=== PATIENT | female | born 1990 | race Two or more races ===

== ENCOUNTER 2017-08-13 14:20 | Observation (INO) | payer MEDICAID | END 2017-08-13 15:15 | disposition home or self-care (01) | DRG 566 | LOC: LDRP 14:20 | PROVIDERS: ADMIT Specialist; ATTEND Specialist | DX: O26.893 Other specified pregnancy related conditions, third trimester (principal); R55 Syncope and collapse; Z3A.34 34 weeks gestation of pregnancy | CPT/HCPCS: 59025; 81002; 82948; 82962; G0378 ==

== ENCOUNTER 2017-09-18 09:50 | Observation (INO) | payer MEDICAID ==
[2017-09-21] MEDS ORDERED: PREN-96 PO (07:15)
== END 2017-09-18 11:25 | disposition home or self-care (01) | DRG 566 ==
LOC: LDRP 09:50
PROVIDERS: ADMIT Obstetrics & Gynecology; ATTEND Obstetrics & Gynecology
DX: O48.0 Post-term pregnancy (principal); Z3A.40 40 weeks gestation of pregnancy
CPT/HCPCS: 59025; 76818; 81002; G0378

== ENCOUNTER → 2024-02-15 | Outpatient (CLI) | payer MEDICAID ==
[~2024-02-15] MED LIST: PREN-96 PO
[2024-02-15 10:29] LABS: Basophils # (auto) 0 10 ^3/uL (0-0.2); Basophils % (auto) 0.5 % (0.0-2.0); Eosinophils # (auto) 0 10 ^3/uL (0-0.8); Hematocrit 35.8 % (36.0-46.0); Hemoglobin 12.1 g/dL (12.2-16.2); Lymphocytes # (auto) 1.9 10 ^3/uL (0.4-5.4); Mean Corpuscular Hemoglobin 32.3 pg (28.0-32.0); Mean Corpuscular Hgb Conc. 33.7 g/dL (32.0-36.0); Mean Corpuscular Volume 95.9 fL (80.0-100.0); Monocytes # (auto) 0.3 10 ^3/uL (0-1.3); Monocytes % (auto) 8.1 % (0.0-12.0); Neutrophils % (auto) 46.4 % (37.0-80.0); Nucleated Red Blood Cells % 0.1 %; Red Blood Cells 3.73 10^6/uL (4.0-5.20); White Blood Cell 4.3 10^3/uL (4.4-10.8)
[2024-02-15 16:22] LABS: Amphetamine Screen, Urine Neg (NEGATIVE); Barbiturate Scree,Urine Neg (NEGATIVE); Benzodiazephine Screen, Urine Neg (NEGATIVE); Cannabinoid Screen, Urine Neg (NEGATIVE); Cocaine Screen, Urine Neg (NEGATIVE); Opiate Scree,Urine Neg (NEGATIVE); Phencyclidine Screen, Urine Neg (NEGATIVE)
[2024-02-16 07:07] LABS: RPR Non Reactive (Non Reactive)
[2024-02-17 02:06] LABS: Chlamydia Trachomatis, NAA Negative (Negative); Neisseria gonorrhoeae, NAA Negative (Negative)
[2024-02-17 12:06] LABS: QuantiFERON-TB Gold Plus Negative (Negative)
== END | disposition home or self-care (01) ==
LOC: LAB 10:01
PROVIDERS: ATTEND Obstetrics & Gynecology
DX: Z11.3 Encounter for screening for infections with a predominantly sexual mode of transmission (principal)
CPT/HCPCS: 36415; 80307; 83036; 84144; 84702; 85025; 86592; 86703; 86762; 86850; 86900; 86901; 87086; 87340

== ENCOUNTER 2024-09-10 12:38 | Inpatient (IN) | payer MEDICAID ==
[~2024-09-10] VITALS: Ht 165.1 cm; Wt 82.1 kg
[2024-09-10] MEDS ORDERED: LACT. RINGERS/OXYTOCIN 20UNITS 1,000 ML IV SCH (13:30)
[2024-09-10] MEDS ORDERED: NALOXONE HCL 0.4 MG/ML VIAL IV ONE (13:30)
[2024-09-10] MEDS ORDERED: ePHEDrine SULFATE 50 MG/ML AMP IV ONE (13:30)
[2024-09-10] MEDS ORDERED: BUTORPHANOL TARTRATE 2 MG/1 ML VIAL IV PRN ×2 (13:30)
[2024-09-10] MEDS ORDERED: TERBUTALINE SULFATE 1 MG/ML 1ML VIAL SC PRN (13:30)
[2024-09-10] MEDS ORDERED: LACT. RINGERS/OXYTOCIN 20UNITS 500 ML IV ONE ×2 (13:30→14:00)
[2024-09-10] MEDS: PENICILLIN G POT 5MIL/D5 50ML 50 ML IV ONE ×2 (14:20→15:08)
[2024-09-10 14:28] LABS: Basophils # (auto) 0 10 ^3/uL (0-0.2); Basophils % (auto) 0.4 % (0.0-2.0); Eosinophils # (auto) 0.1 10 ^3/uL (0-0.8); Eosinophils % (auto) 1.4 % (0.0-7.0); Hemoglobin 12.5 g/dL (12.2-16.2); Lymphocytes # (auto) 1.8 10 ^3/uL (0.4-5.4); Lymphocytes % (auto) 32.5 % (10.0-50.0); Mean Corpuscular Hemoglobin 33.8 pg (28.0-32.0); Mean Corpuscular Hgb Conc. 33.7 g/dL (32.0-36.0); Mean Corpuscular Volume 100.2 fL (80.0-100.0); Monocytes # (auto) 0.4 10 ^3/uL (0-1.3); Neutrophils # (auto) 3.2 10 ^3/uL (1.6-8.6); Neutrophils % (auto) 57.7 % (37.0-80.0); Platelet Count (auto) 135 10^3/uL (140-450); Red Blood Cells 3.69 10^6/uL (4.0-5.20); Red Cell Distribution Width 13.3 % (11.8-14.3); White Blood Cell 5.6 10^3/uL (4.4-10.8)
[2024-09-10 14:45] LABS: INR 0.96 (0.9-1.15); Partial Thromboplastin Time 27.3 SEC (24.5-34.5); Prothrombin Time 10.2 sec (9.3-11.8)
[2024-09-10 14:49] LABS: Alanine Aminotransferase 13 U/L (7-40); Albumin 3.7 g/dL (3.2-4.8); Alkaline Phosphatase 241 U/L (46-116); Anion Gap 12 (5-15); Aspartate Aminotransferase 17 U/L (13-40); BUN/Creatinine Ratio 13.3 (10.0-20.0); Bilirubin, Total 0.5 mg/dL (0.2-1.0); Blood Urea Nitrogen 8 mg/dL (9-23); Calcium 9.7 mg/dL (8.7-10.4); Carbon Dioxide 17 mmol/L (20-31); Chloride 110 mmol/L (98-107); Glucose 79 mg/dL (74-106); Potassium 3.6 mmol/L (3.5-5.1); Sodium 139 mmol/L (136-145); Total Protein 6.2 g/dL (5.7-8.2)
[2024-09-10] MEDS: PHISODERM TOP SOLN 240ML BTL TOP PRN (15:07)
[2024-09-10] MEDS: DERMOPLAST 60ML BOTTLE TOP PRN (15:07)
[2024-09-10] MEDS: WITCH HAZEL-GLYCERIN PAD TOP PRN (15:07)
[2024-09-10 15:08] LABS: Urine Bacteria None Seen /hpf (None Seen)
[2024-09-10] MEDS: PHISODERM TOP SOLN 240ML BTL TOP ONE (15:08)
[2024-09-10] MEDS: DERMOPLAST 60ML BOTTLE TOP ONE (15:08)
[2024-09-10] MEDS: WITCH HAZEL-GLYCERIN PAD TOP ONE (15:08)
--- NOTE | 2024-09-10 15:13 | DVHHP2 ---
OB CC & HPI Date Date of Admission: Sep 10, 2024 Patient Identification: : 4 Para: 3 EDC: Sep 11, 2024 EGA: 39 6/7 Chief Complaints: Reason for admission: active labor Other reason for admission: Of labor precipitous delivery History of Present Complaints Patient had her early care March 06, 2024 13 weeks Past Medical History Cardiac: No pertinent Hx Pulmonary: No pertinent Hx Central Nervous System: No pertinent Hx GI: No pertinent Hx Hemotology/Oncology: No pertinent Hx Hepatobiliary: No pertinent Hx Psychiatric: No pertinent Hx Musculoskeletal: No pertinent Hx Rheumotologic: No pertinent Hx Infectious Disease: No peritnent Hx ENT: No pertinent Hx Renal/: No pertinent Hx Endocrine: No pertinent Hx Dermatology: No pertinent Hx Past Surgical History: No pertinent Hx OB History OB History Care: Good Care Ultrasounds: Normal mid trimester US Obstetrical Complications: None Medical Complications: None Allergies: Coded Allergies: NO KNOWN ALLERGIES (Unverified , 07/27/12) Home Meds Reported Medications Vit W/ Ferrous Fumara ( One Daily) Daily Tab, 1 TAB PO DAILY, #90 TAB 3 Refills 09/21/17 Current Medications Current Medications Medications (Trade) Dose Ordered Sig/Marques Route PRN Reason Start Time Stop Time Status Last Admin Lactated Ringer's 1,000 ml @ 125 mls/hr Q8H IV 09/10/24 13:30 Penicillin G Potassium 5401920 units/Dextrose 50 ml @ 100 mls/hr Q4H IV 09/10/24 17:30 Witch Aracely (Tucks) 1 pad PRN PRN TOP PERINEAL AREA DISCOMFORT 09/10/24 13:30 Sodium Lauryl Sulfate (Phisoderm) 240 ml PRN PRN TOP PERINEAL AREA DISCOMFORT 09/10/24 13:30 Benzocaine (Dermoplast) 1 applic PRN PRN TOP PERINEAL AREA DISCOMFORT 09/10/24 13:30 Butorphanol Tartrate (Stadol Injection) 1 mg Q4HPRN PRN IV MODERATE PAIN (4-6 PAIN SCALE) 09/10/24 13:30 Butorphanol Tartrate (Stadol Injection) 2 mg Q4HPRN PRN IV SEVERE PAIN (7-10 PAIN SCALE) 09/10/24 13:30 Lidocaine HCl (Xylocaine) 20 ml ONCE PRN IJ PERINEAL AREA DISCOMFORT 09/10/24 13:30 Oxytocin 1,000 ml @ 6 ml/hr Q24H IV 09/10/24 13:30 Terbutaline Sulfate (Brethine Inj) 0.25 mg ONCE PRN SC Uterine tachysystole 09/10/24 13:30 Family & Social History Family/Social History Blood Type: O+ Rubella: immune RPR/VDRL: Negative GBS Status: Unknown HBsAG: Negative Review of Systems Constitutional: No symptom reported Ears, Nose, & Throat: No symptom reported Eyes: No symptom reported Pulmonary/Respiratory: No symptom reported Cardiovascular: No symptom reported Gastrointestinal: No symptom reported Genitourinary: No symptom reported Musculoskeletal: No symptom reported Skin: No symptom reported Psychiatric: No symptom reported Endocrine: No symptom reported Hemotologic/Lymphatic: No symptom reported OB Admission Exam Physical Exam Cervical Dilatation: 4cm (On arrival precipitously she went to complete spontaneously ruptured and delivered before her epidural and/or planning aide could arrive. ER physician was at bedside) Station: 0 Membranes: Intact Amniotic Fluid: Thin Meconium Heart Rate: 140's Accelerations: Accelerations Present Decelerations: No Decelerations Short Term Variability: Present [employer] Variability: Average (6-25) Contractions on Admission: < 5 Minutes Apart Intensity: Moderate OB Plan Plan Admitting Diagnosis: labor Precipitous labor and delivery PATT meconium no tears. Plan: Expectant Management LATHA MCMAHAN DO Sep 10, 2024 15:13
[2024-09-10] MEDS ORDERED: ONDANSETRON ODT 4 MG TAB PO PRN (15:15)
--- NOTE | 2024-09-10 15:16 | LDN2 ---
Labor and Delivery Note Date 09/10/24 Age 33 4 Para 3 AB 0 EDC 09/11/2024 EGA 39 6/7 wks Diagnosis Active labor Vaginal Delivery: VTX Vacuum Assisted: No Placenta: Spontaneous Sex: Female Weight pnd Apgars 8/8 Anesthesia none Episiotomy: No Repaired with n/a EBL 200cc Labs Laboratory Tests 02/15/24 10:11: Hepatitis B Surface Antigen Negative, HIV (1&2) Antibody Negative, Rubella Antibody Positive Blood Bank 02/15/24 10:11: Blood Type O POSITIVE Complications none Conditions stable Animal Treatment Investigator none present LATHA MCMAHAN DO Sep 10, 2024 15:16
[2024-09-10 15:21] LABS: Urine Blood 2+ /uL (Negative); Urine Clarity Clear (Clear); Urine Color Yellow (Yellow); Urine Mucus FEW (None Seen); Urine Protein, UAD TRACE (Negative); Urine Specific Gravity 1.017 (1.001-1.035); Urine Urobilinogen Normal (Negative); Urine WBC 7 /hpf (0 - 5); Urine pH 5.5 (5.0-9.0)
[2024-09-10 15:25] LABS: Amphetamine Screen, Urine Neg (NEGATIVE); Barbiturate Scree,Urine Neg (NEGATIVE); Benzodiazephine Screen, Urine Neg (NEGATIVE); Cannabinoid Screen, Urine Neg (NEGATIVE); Cocaine Screen, Urine Neg (NEGATIVE); Opiate Scree,Urine Neg (NEGATIVE); Phencyclidine Screen, Urine Neg (NEGATIVE)
[2024-09-10] MEDS: LACTATED RINGER'S 1,000 ML IV SCH (16:55)
[2024-09-10] MEDS: LACTATED RINGER'S 1,000 ML IV ONE (16:55)
[2024-09-10] MEDS ORDERED: PENICILLIN G POTASSIUM 2,500,000 UNITS in D5W 5% 50 ML IV SCH (17:30)
[2024-09-10 19:00] VITALS: BP 123/66; PULSE 62; RESP 16; TEMP 98.8
[2024-09-10] MEDS: IBUPROFEN 600 MG TAB PO PRN (19:33)
[2024-09-10] MEDS: LIDOCAINE 2%HCL (LOCAL ANESTH.) INJ 20ML MDV IJ PRN (21:03)
[2024-09-10 23:00] VITALS: BP 115/69; PULSE 57; RESP 16; TEMP 98.3
[2024-09-10] MEDS: ACETAMINOPHEN 325 MG TAB PO PRN (23:03)
[2024-09-11 03:00] VITALS: BP 113/60; PULSE 59; RESP 18; TEMP 98.1; O2SAT 99
--- NOTE | 2024-09-11 05:59 | DVHPN2 ---
Chief Complaints Patient reports: No new complaints Nursing reports: No new complaints, No abdominal pain, No chest pain, No dizziness Objective Vitals Vital Signs Date Time Temp Pulse Resp B/P (MAP) Pulse Ox O2 Delivery O2 Flow Rate FiO2 09/11/24 03:00 98.1 59 18 113/60 (77) 99 98.1 09/10/24 19:10 Room Air Medications Current Medications Medications (Trade) Dose Ordered Sig/Marques Route PRN Reason Start Time Stop Time Status Last Admin Acetaminophen (Tylenol Tablet) 650 mg Q4HP PRN PO MILD PAIN (1-3 PAIN SCALE) 09/10/24 15:15 09/10/24 23:03 Benzocaine (Dermoplast) 1 applic PRN PRN TOP PERINEAL AREA DISCOMFORT 09/10/24 13:30 09/10/24 15:07 Ibuprofen (Motrin Tablet) 600 mg Q6HP PRN PO MODERATE PAIN (4-6 PAIN SCALE) 09/10/24 15:15 09/10/24 19:33 Lidocaine HCl (Xylocaine) 20 ml ONCE PRN IJ PERINEAL AREA DISCOMFORT 09/10/24 13:30 Ondansetron HCl (Zofran Po) 4 mg Q4HPRN PRN PO NAUSEA / VOMITING 09/10/24 15:15 Sodium Lauryl Sulfate (Phisoderm) 240 ml PRN PRN TOP PERINEAL AREA DISCOMFORT 09/10/24 13:30 09/10/24 15:07 Witch Aracely (Tucks) 1 pad PRN PRN TOP PERINEAL AREA DISCOMFORT 09/10/24 13:30 09/10/24 15:07 General: Normal Neck: Normal Lungs: Normal Cardiovascular: Normal Abdominal: Normal Musculoskeletal: Normal Extremities: Normal Neurological: Normal Studies Laboratory Tests 09/10/24 13:49 Test 09/10/24 13:49 Range/Units Serum Glucose 79 74-106 mg/dL Ass/Plan Assessment day 1 stable improved Plan Advanced care LATHA MCMAHAN DO Sep 11, 2024 05:59
[2024-09-11 07:00] VITALS: BP 111/65; PULSE 61; RESP 20; TEMP 97.8; O2SAT 97
[2024-09-11 11:00] VITALS: BP 112/68; PULSE 79; RESP 16; TEMP 97.6; O2SAT 96
[2024-09-11 15:00] VITALS: BP 112/70; PULSE 71; RESP 16; TEMP 97.7; O2SAT 97
[2024-09-11 19:15] VITALS: BP 113/76; PULSE 79; RESP 18; TEMP 98.5; O2SAT 96
[2024-09-11 23:00] VITALS: BP 115/73; PULSE 74; RESP 16; TEMP 98.5; O2SAT 100
[2024-09-12 03:00] VITALS: BP 111/74; PULSE 72; RESP 18; TEMP 98.1; O2SAT 98
--- NOTE | 2024-09-12 05:10 | DVHPN2 ---
Chief Complaints Patient reports: No new complaints, Feels better (PPD #2) Nursing reports: No new complaints, No abdominal pain, No chest pain, No dizziness Objective Vitals Vital Signs Date Time Temp Pulse Resp B/P (MAP) Pulse Ox O2 Delivery O2 Flow Rate FiO2 09/12/24 03:00 98.1 72 18 111/74 (86) 98 98.1 09/11/24 19:15 Room Air 09/11/24 07:00 0.0 General: Normal Neck: Normal Lungs: Normal Cardiovascular: Normal Abdominal: Normal (14 week size firm fundus) Musculoskeletal: Normal Extremities: Normal Neurological: Normal Studies Laboratory Tests 09/10/24 13:49 Test 09/10/24 13:49 Range/Units Serum Glucose 79 74-106 mg/dL Ass/Plan Assessment day 2 stable improved Plan see dc summary see dc orders LATHA MCMAHAN DO Sep 12, 2024 05:10
--- NOTE | 2024-09-12 05:11 | DVHDS2 ---
Obstetrics Discharge Summary Obstetrics Discharge Summary Date of Admission: Sep 10, 2024 Date of Discharge: Sep 12, 2024 Reason For Admission: Onset of Labor Procedures: NST, Ultrasound Intrapartum Procedures: Spontaneous vaginal deliv Procedures: None Operative Complicat: None Discharge Diagnosis: Term -Delivered Discharge Information: Activity (Pelvic rest 6 weeks), Diet (Routine), Medications (None), Instructions ( hemorrhage precautions ), Discharge to (Home), Discarge date (September 12, 2024) LATHA MCMAHAN DO Sep 12, 2024 05:11
[2024-09-12 07:30] VITALS: BP 120/85; PULSE 72; RESP 16; TEMP 97.6; O2SAT 94
[2024-09-12 11:00] VITALS: BP 124/85; PULSE 70; RESP 15; TEMP 98; O2SAT 99
[2024-09-12 12:07] LABS: RPR Non Reactive (Non Reactive)
[2024-09-14 11:06] LABS: Treponema Pallidum Ab LC Non Reactive (Non Reactive)
== END 2024-09-12 12:43 | disposition home or self-care (01) | DRG 560 ==
LOC: LDRP 12:38 → OBSVTOIN 13:20 → LDRP 15:25
PROVIDERS: ADMIT Obstetrics & Gynecology; ATTEND Obstetrics & Gynecology
PROC: 10E0XZZ Delivery of Products of Conception, External Approach (ICD-10-PCS; principal; 2024-09-10)
DX: O99.824 Streptococcus B carrier state complicating childbirth (principal); Z37.0 Single live birth; Z3A.39 39 weeks gestation of pregnancy
CPT/HCPCS: 36415; 59025; 59409; 80053; 80307; 81001; 81002; 85025; 85610; 85730; 86592; 86780; 86803; 86850; 86900; 86901; 94760; 96360; 96361; 96372; G0378; J2540; J7060